=== PATIENT | male | born 1945 | race Caucasian/White ===

== ENCOUNTER 2018-08-30 14:03 | Emergency (ER) | payer MEDICARE, OTHER ==
[~2018-08-30] VITALS: Ht 180.3 cm; Wt 72.8 kg
[2018-08-30 15:07] LABS: BASOPHILS % (AUTO) 0.1 % (0-1); EOSINOPHILS # (AUTO) 0.2 X10'3 (0-0.9); EOSINOPHILS % (AUTO) 1.8 % (0-6); HEMATOCRIT 38.5 % (42.0-52.0); HEMOGLOBIN 13.1 g/dl (14.0-17.9); LYMPHOCYTES # (AUTO) 0.6 X10'3 (1.1-4.8); LYMPHOCYTES % (AUTO) 5.4 % (21-51); MEAN CORPUSCULAR HEMOGLOBIN 30.5 PG (27.0-31.0); MEAN CORPUSCULAR HGB CONC 34.1 g/dL (33.0-36.5); MEAN CORPUSCULAR VOLUME 89.4 FL (78-98); MEAN PLATELET VOLUME 8.4 FL (7.4-10.4); MONOCYTES # (AUTO) 0.4 X10'3 (0-0.9); MONOCYTES % (AUTO) 3.4 % (2-12); NEUTROPHILS # (AUTO) 9.9 X10'3 (1.8-7.7); NEUTROPHILS % (AUTO) 89.3 % (42-75); PLATELET COUNT 260 X10'3 (140-440); RED BLOOD COUNT 4.31 X10'6 (4.70-6.10); RED CELL DISTRIBUTION WIDTH 12.6 % (11.5-14.5); WHITE BLOOD COUNT 11.1 X10'3 (4.5-11.0)
[2018-08-30 15:21] LABS: ALANINE AMINOTRANSFERASE 21 U/L (12-78); ALBUMIN 3.6 G/DL (3.4-5.0); ALBUMIN/GLOBULIN RATIO 0.9 (1.1-1.5); ALKALINE PHOSPHATASE 169 IU/L (46-116); ANION GAP 13 (8-16); ASPARTATE AMINO TRANSFERASE 18 U/L (10-37); BILIRUBIN,TOTAL 0.3 MG/DL (0.1-1.0); BLOOD UREA NITROGEN 29 MG/DL (7-18); CALCIUM 9.5 MG/DL (8.5-10.1); CHLORIDE 100 MMOL/L (99-107); CREATININE 1.81 MG/DL (0.60-1.10); GLUCOSE 397 MG/DL (70-104); POTASSIUM 4.6 MMOL/L (3.5-5.1); SODIUM 138 MMOL/L (135-145); TOTAL CARBON DIOXIDE 24.7 MMOL/L (24-32); TOTAL PROTEIN 7.5 G/DL (6.4-8.2); eGFR 37 ML/MIN
[2018-08-30 15:22] LABS: PARTIAL THROMBOPLASTIN TIME 22 SECONDS (22-32); PROTHROMBIN TIME 10.2 SECONDS (9.0-12.0)
[2018-08-30 16:44] VITALS: BP 145/94
[2018-08-30 17:20] LABS: CLARITY,URINE CLOUDY (Clear); COLOR,URINE YELLOW (Yellow); GLUCOSE, URINE >=1000 mg/dl (Neg); KETONES,URINE TRACE mg/dl (Neg); LEUKOCYTE ESTERASE ,URINE NEGATIVE (Neg); NITRITES, URINE NEGATIVE (Neg); OCCULT BLOOD,URINE NEGATIVE (Neg); PH,URINE 5.5 (4.8-8.0); PROTEIN,URINE NEGATIVE (Neg); UROBILINOGEN,URINE 0.2 E.U/dL (0.2-1.0)
[2018-08-30 17:25] LABS: UA COLLECTION TYPE NON-SPECIFIED
[2018-08-30 17:26] LABS: HYALINE CASTS 0-3 /LPF (NEGATIVE); MUCUS STRANDS FEW /LPF (Neg); SQUAMOUS EPITHELIAL CELL,UR FEW /LPF (FEW); WBC CLUMPS,URINE MANY /HPF (NEGATIVE)
[2018-08-30 17:27] LABS: BACTERIA,URINE FEW /HPF (Neg)
[2018-08-30 17:28] LABS: WBC,URINE 30-50 /HPF (0-4)
--- NOTE | 2018-08-30 17:47 | NUR ---
LEFT FOR MRI
--- NOTE | 2018-08-30 18:23 | NUR ---
report to ATIF atkins
[2018-08-30] MEDS ORDERED: CefTRIAXone/D5W-Rocephin 1gm 50 ML IV ONE (18:25)
[2018-08-30] MEDS ORDERED: CIPR-230 PO (19:07)
== END 2018-08-30 19:32 | disposition home or self-care (01) ==
LOC: ER 14:04
DX: N39.0 Urinary tract infection, site not specified (principal); N17.9 Acute kidney failure, unspecified; R42 Dizziness and giddiness; E11.9 Type 2 diabetes mellitus without complications; Z98.890 Other specified postprocedural states; Z88.0 Allergy status to penicillin
CPT/HCPCS: 36415; 70450; 70551; 71045; 80053; 81001; 83605; 84484; 85025; 85610; 85730; 87040; 87077; 87088; 93005; 96365; 99284; J0696

== ENCOUNTER 2021-07-29 09:16 | Emergency (ER) | payer BC, MEDICAID ==
[~2021-07-29] VITALS: Ht 177.8 cm; Wt 77.3 kg
[2021-07-29 10:07] LABS: BASOPHILS % (AUTO) 0.3 % (0-1); EOSINOPHILS % (AUTO) 0.1 % (0-6); HEMATOCRIT 33.1 % (42.0-52.0); HEMOGLOBIN 11.2 g/dl (14.0-17.9); LYMPHOCYTES # (AUTO) 0.5 X10'3 (1.1-4.8); MEAN CORPUSCULAR HEMOGLOBIN 30.1 PG (27.0-31.0); MEAN CORPUSCULAR VOLUME 88.8 FL (78-98); MEAN PLATELET VOLUME 7.9 FL (7.4-10.4); MONOCYTES # (AUTO) 0.6 X10'3 (0-0.9); MONOCYTES % (AUTO) 8.4 % (2-12); NEUTROPHILS % (AUTO) 84.2 % (42-75); PLATELET COUNT 222 X10'3 (140-440); RED BLOOD COUNT 3.73 X10'6 (4.70-6.10); RED CELL DISTRIBUTION WIDTH 13.1 % (11.5-14.5); WHITE BLOOD COUNT 7.2 X10'3 (4.5-11.0)
[2021-07-29 10:25] LABS: ALANINE AMINOTRANSFERASE 12 U/L (12-78); ALBUMIN 2.8 G/DL (3.4-5.0); ALBUMIN/GLOBULIN RATIO 0.7 (1.1-1.5); ALKALINE PHOSPHATASE 106 IU/L (46-116); ANION GAP 9 (8-16); ASPARTATE AMINO TRANSFERASE 23 U/L (10-37); BILIRUBIN,TOTAL 0.3 MG/DL (0.1-1.0); BLOOD UREA NITROGEN 26 MG/DL (7-18); BUN/CREATININE RATIO 18.8 (5.4-32.0); CALCIUM 8.3 MG/DL (8.5-10.1); CHLORIDE 97 MMOL/L (99-107); CREATININE 1.38 MG/DL (0.60-1.10); GLUCOSE 281 MG/DL (70-104); POTASSIUM 4.3 MMOL/L (3.5-5.1); SODIUM 131 MMOL/L (135-145); TOTAL CARBON DIOXIDE 24.8 MMOL/L (24-32); TOTAL PROTEIN 7.1 G/DL (6.4-8.2); eGFR 50 ML/MIN
--- NOTE | 2021-07-29 11:15 | NUR ---
PT NOTIFIED HE IS POSITIVE COVID. AND DAUGHTER PRESENT, WILL TEST.
[2021-07-29] MEDS ORDERED: BAMLANIVIMAB&ETESEVIMAB 2100mg 2,100 MG in normal saline 100ml IV soln 100 ML IV ONE (11:25)
--- NOTE | 2021-07-29 11:48 | NUR ---
called pharmacy, they said 15minutes, med will be ready.
--- NOTE | 2021-07-29 12:05 | NUR ---
med not ready from pharmacy, they will run down when ready.
[2021-07-29] MEDS ORDERED: GUAI400T92 PO (14:27)
[2021-07-29] MEDS ORDERED: BENZ-38 PO (14:27)
--- NOTE | 2021-07-29 14:30 | NUR ---
Pt given and understands d/c instructions. Ambulatory with a steady gait.
[2021-07-29 14:37] VITALS: BP 147/74
== END 2021-07-29 14:30 | disposition home or self-care (01) ==
LOC: ER 09:17
DX: U07.1 COVID-19 (principal); R05.9 Cough, unspecified; E86.0 Dehydration; R10.84 Generalized abdominal pain; E11.9 Type 2 diabetes mellitus without complications; Z98.890 Other specified postprocedural states; Z88.0 Allergy status to penicillin; Z79.899 Other long term (current) drug therapy
CPT/HCPCS: 36415; 71045; 80053; 85025; 87635; 99284; C9803; J3490; M0245; Q0245

== ENCOUNTER 2021-08-02 12:52 | Emergency (ER) | payer BC, MEDICAID ==
[~2021-08-02] VITALS: Ht 177.8 cm; Wt 77.3 kg
[~2021-08-02 12:52] MED LIST: BENZ-38 PO; GUAI400T92 PO
[2021-08-02] MEDS ORDERED: ACET-1059 PO (13:06)
[2021-08-02] MEDS ORDERED: dexamethasone sod phosphate 10mg/ml inj PO STA (13:07)
[2021-08-02 13:11] VITALS: BP 98/78
== END 2021-08-02 13:54 | disposition home or self-care (01) ==
LOC: ER 12:53
DX: U07.1 COVID-19 (principal); J40 Bronchitis, not specified as acute or chronic; E11.9 Type 2 diabetes mellitus without complications; Z88.0 Allergy status to penicillin; Z79.899 Other long term (current) drug therapy
CPT/HCPCS: 99283; J1100

== ENCOUNTER 2021-08-04 18:16 | Inpatient (IN) | payer BC, MEDICAID ==
[~2021-08-04] VITALS: Ht 177.8 cm; Wt 79.5 kg
[~2021-08-04 18:16] MED LIST changes: +ACET-1059 PO
[2021-08-04] MEDS ORDERED: normal saline 1000ML IV soln IVB ONE (18:30)
[2021-08-04 19:11] LABS: BASOPHILS % (AUTO) 0.3 % (0-1); EOSINOPHILS % (AUTO) 0 % (0-6); HEMATOCRIT 33.7 % (42.0-52.0); HEMOGLOBIN 11.4 g/dl (14.0-17.9); LYMPHOCYTES % (AUTO) 15.4 % (21-51); MEAN CORPUSCULAR HEMOGLOBIN 29.8 PG (27.0-31.0); MEAN CORPUSCULAR HGB CONC 33.9 g/dL (33.0-36.5); MEAN CORPUSCULAR VOLUME 88.1 FL (78-98); MONOCYTES # (AUTO) 0.7 X10'3 (0-0.9); MONOCYTES % (AUTO) 10.8 % (2-12); NEUTROPHILS % (AUTO) 73.5 % (42-75); PLATELET COUNT 203 X10'3 (140-440); RED BLOOD COUNT 3.82 X10'6 (4.70-6.10); RED CELL DISTRIBUTION WIDTH 12.9 % (11.5-14.5); WHITE BLOOD COUNT 6.8 X10'3 (4.5-11.0)
[2021-08-04 19:28] LABS: ALANINE AMINOTRANSFERASE 14 U/L (12-78); ALBUMIN 2.4 G/DL (3.4-5.0); ALBUMIN/GLOBULIN RATIO 0.6 (1.1-1.5); ALKALINE PHOSPHATASE 95 IU/L (46-116); ANION GAP 7 (8-16); ASPARTATE AMINO TRANSFERASE 22 U/L (10-37); BILIRUBIN,TOTAL 0.3 MG/DL (0.1-1.0); BLOOD UREA NITROGEN 26 MG/DL (7-18); CALCIUM 7.9 MG/DL (8.5-10.1); CHLORIDE 101 MMOL/L (99-107); ETHANOL < 0.010 GM/DL (0.0-0.010); GLUCOSE 139 MG/DL (70-104); POTASSIUM 4.5 MMOL/L (3.5-5.1); SODIUM 134 MMOL/L (135-145); TOTAL CARBON DIOXIDE 25.9 MMOL/L (24-32); TOTAL PROTEIN 6.3 G/DL (6.4-8.2); eGFR 54 ML/MIN
[2021-08-04 20:48] LABS: CLARITY,URINE CLEAR (Clear); COLOR,URINE YELLOW (Yellow); GLUCOSE, URINE 250 mg/dl (Neg); KETONES,URINE TRACE mg/dl (Neg); LEUKOCYTE ESTERASE ,URINE NEGATIVE (Neg); NITRITES, URINE NEGATIVE (Neg); OCCULT BLOOD,URINE SMALL (Neg); PROTEIN,URINE TRACE mg/dl (Neg); UROBILINOGEN,URINE 0.2 E.U/dL (0.2-1.0)
[2021-08-04 20:55] LABS: UA COLLECTION TYPE STRAIGHT CATH
[2021-08-04] MEDS ORDERED: temazepam 15mg capsule PO PRN (21:00)
[2021-08-04 21:02] LABS: URINE AMPHETAMINE SCREEN NEGATIVE (Neg); URINE BARBITUATE SCREEN NEGATIVE (Neg); URINE BENZODIAZEPINES SCREEN NEGATIVE (Neg); URINE CANNABINOID SCREEN NEGATIVE (Neg); URINE COCAINE SCREEN NEGATIVE (Neg); URINE METHADONE SCREEN NEGATIVE (Neg); URINE OPIATE SCREEN POSITIVE (Neg); URINE PHENCYCLIDINE SCREEN NEGATIVE (Neg)
[2021-08-04 21:03] LABS: BACTERIA,URINE FEW /HPF (Neg); RBC,URINE 0-2 /HPF (0-2); WBC,URINE 0-4 /HPF (0-4)
[2021-08-04 21:04] LABS: MUCUS STRANDS NONE SEEN /LPF (Neg); SQUAMOUS EPITHELIAL CELL,UR FEW /LPF (FEW)
--- NOTE | 2021-08-04 21:13 | NUR ---
PT WAS FOUND STANDING UP AT [facility] OF [facility]. PT DID NOT FALL
--- NOTE | 2021-08-04 21:31 | NUR ---
mo lazo at bedside as anthony
[2021-08-04] MEDS ORDERED: acetaminophen 650mg rectal suppository RC PRN (21:45)
[2021-08-04] MEDS ORDERED: HYDROcodone/acetaminophen 10/325mg tab PO PRN (21:45)
[2021-08-04] MEDS ORDERED: HYDROcodone/acetaminophen 5mg/325mg tablet PO PRN (21:45)
[2021-08-04] MEDS ORDERED: diphenhydrAMINE 25mg capsule PO PRN (21:45)
[2021-08-04] MEDS ORDERED: bisacodyl 10mg suppository rectal RC PRN (21:45)
[2021-08-04] MEDS ORDERED: ondansetron/PF 4mg/2ml inj IV PRN (21:45)
[2021-08-04] MEDS ORDERED: acetaminophen 325mg tablet PO PRN ×2 (21:45)
[2021-08-04] MEDS ORDERED: mag hydrox/Alum hydrox/simeth 30ml oral suspension PO PRN (21:45)
[2021-08-04] MEDS ORDERED: diphenhydrAMINE 50 mg/ml inj IV PRN (21:45)
[2021-08-04] MEDS: normal saline 1000ml 1,000 ML IV SCH (21:45)
[2021-08-04] MEDS ORDERED: ondansetron 4mg rapidly disintigrating tab PO PRN (21:45)
[2021-08-04] MEDS ORDERED: magnesium hydroxide 30ml (MOM) UD suspension PO PRN (21:45)
[2021-08-04] MEDS ORDERED: HYDROmorphone inj. 0.5 MG/0.5 ML DISP.SYRIN IV PRN (21:45)
[2021-08-04] MEDS ORDERED: morphine 2 MG/ML inj. syringe IV PRN ×2 (21:45)
[2021-08-04] MEDS ORDERED: dextrose 50%-water 50ml dispensing syringe IV PRN ×2 (21:55)
[2021-08-04] MEDS ORDERED: glucagon, human recombinant 1mg kit SUBCUT PRN (21:55)
[2021-08-04] MEDS ORDERED: MESSAGE TO PHARMACY PO ONE (21:55)
[2021-08-04] MEDS ORDERED: ALBUTEROL INHALER 1 PUFF/90 MCG INHALER IH PRN (21:55)
[2021-08-04] MEDS ORDERED: dextrose ORAL solution 15 GM/59 ML bottle PO PRN ×2 (21:55)
[2021-08-04 22:07] LABS: APTT 27 SECONDS (22-32); D-DIMER 1.08 MG/L FEU (0-0.50)
[2021-08-04 22:11] LABS: HEMOGLOBIN A1C 10.3 % (4.5-6.2)
[2021-08-04 22:19] LABS: CREATINE KINASE 209 U/L (39-308); LIPASE < 50 U/L (73-393); PHOSPHORUS 2.6 MG/DL (2.3-4.5)
--- NOTE | 2021-08-04 23:49 | NUR ---
pts was contacted in regards to overhealth. reports no home meds taken accept insulin. unkown dose/last taken. is notified that patient is being admitted
--- NOTE | 2021-08-05 06:41 | NUR ---
TRIED TO GIVE TO TO THE RN BUT SHE IS BUSY AT THIS TIME.
--- NOTE | 2021-08-05 07:10 | NUR ---
TRIED TO GIVE REPORT AGAIN ,NURSE IS BUSY DOING MED PASS AT THIS TIME AND SHE WILL CALL US IN 2-3 MINS.
[2021-08-05 07:21] LABS: BASOPHILS % (AUTO) 0.1 % (0-1); EOSINOPHILS % (AUTO) 0.3 % (0-6); HEMATOCRIT 34.1 % (42.0-52.0); HEMOGLOBIN 11.7 g/dl (14.0-17.9); LYMPHOCYTES # (AUTO) 1.2 X10'3 (1.1-4.8); LYMPHOCYTES % (AUTO) 16.8 % (21-51); MEAN CORPUSCULAR HGB CONC 34.4 g/dL (33.0-36.5); MEAN CORPUSCULAR VOLUME 87.1 FL (78-98); MEAN PLATELET VOLUME 7.5 FL (7.4-10.4); MONOCYTES # (AUTO) 0.8 X10'3 (0-0.9); MONOCYTES % (AUTO) 10.5 % (2-12); NEUTROPHILS # (AUTO) 5.2 X10'3 (1.8-7.7); NEUTROPHILS % (AUTO) 72.3 % (42-75); PLATELET COUNT 197 X10'3 (140-440); RED BLOOD COUNT 3.91 X10'6 (4.70-6.10); WHITE BLOOD COUNT 7.2 X10'3 (4.5-11.0)
[2021-08-05 07:57] LABS: ALANINE AMINOTRANSFERASE 15 U/L (12-78); ALBUMIN 2.2 G/DL (3.4-5.0); ALBUMIN/GLOBULIN RATIO 0.5 (1.1-1.5); ALKALINE PHOSPHATASE 88 IU/L (46-116); ANION GAP 8 (8-16); ASPARTATE AMINO TRANSFERASE 25 U/L (10-37); BILIRUBIN,TOTAL 0.4 MG/DL (0.1-1.0); BLOOD UREA NITROGEN 19 MG/DL (7-18); BUN/CREATININE RATIO 17.9 (5.4-32.0); CALCIUM 7.8 MG/DL (8.5-10.1); CHLORIDE 102 MMOL/L (99-107); CHOL/HDL RATIO 3.4 (0.00-4.99); CHOLESTEROL 133 MG/DL (0-200); CREATININE 1.06 MG/DL (0.60-1.10); GLUCOSE 181 MG/DL (70-104); HDL CHOLESTEROL 39 MG/DL (35-60); LDL CHOLESTEROL 73 MG/DL (50-100); POTASSIUM 4.3 MMOL/L (3.5-5.1); SODIUM 136 MMOL/L (135-145); TOTAL CARBON DIOXIDE 26.4 MMOL/L (24-32); TOTAL PROTEIN 6.3 G/DL (6.4-8.2); TRIGLYCERIDES 123 MG/DL (20-135); eGFR 68 ML/MIN
[2021-08-05] MEDS ORDERED: dexamethasone 4mg/ml inj IV SCH ×2 (08:00→20:00)
[2021-08-05] MEDS: normal saline 1000ml 1,000 ML IV SCH (08:42)
[2021-08-05] MEDS: docusate sod 100mg capsule PO SCH ×2 (08:51→19:55)
[2021-08-05] MEDS: enoxaparin 40mg/0.4ml syringe SUBCUT SCH ×2 (08:51→19:49)
[2021-08-05] MEDS: levoFLOXACIN-Levaquin 750MG/D5 150 ML IV SCH (08:52)
[2021-08-05 09:10] VITALS: BP 171/73
[2021-08-05] MEDS: insulin Lispro (HumaLOG) vial - multi-dose SQ SCH ×4 (09:59→21:49)
[2021-08-05 10:00] VITALS: BP 137/57
--- NOTE | 2021-08-05 10:40 | NUR ---
Message: [phone]. Patient's blood cultures are positive with gram + cocci, + chains. Cat SRIVASTAVA [id number]
[2021-08-05] MEDS ORDERED: iohexol 350MG/ML 100ml bottle IV ONE (12:35)
--- NOTE | 2021-08-05 13:58 | NUR ---
DM Consult: Pt hx T2DM though insulin dependent per RN today and ER note A1C 10.3% admit DX ALOC, COVID-19, bilateral PNA, and ketonuria r/t dehydration per EMR. RD d/w RN regarding ALOC now pt AOx4 per EMR; RN reports pt appropriate w/ mild occasional confusion easily resolving. RD contacted pt via TC for verbal DM ed. Pt reports has controlled his DM well all on his own and manages himself without the help of PCP. Pt reports doesn't like doctors and has not seen one in "40 years." Pt also reports takes DM meds at home and checks Glu routinely but does not know name of DM meds or typical Glu ranges at home. Per pt, has better knowledge of DM meds and Glu ranges since she has "better memory." Pt did still report his Glu is in "optimal ranges for him" at home. Pt did not know what A1C was. RD notified pt of A1C and educated pt on optimal Glu ranges. Pt was agreeable to have written DM ed mailed to home address and RD encouraged pt or his to contact dietitian's office if further questions/concerns. Written DM ed w/ RD contact information mailed to pt home address in EMR. RD relayed pt conversation to RN and CM; per RN pt reports does not have PCP since he believes he knows more about DM management. RN was able to reach who reports pt takes Novolin AM/HS and one other insulin though unsure of name. Will remain available for further nutrition questions/concerns this admit. Addendum: 08/05/21 at [address] Amended: Links added.
[2021-08-05 14:00] VITALS: BP 114/57
[2021-08-05 18:00] VITALS: BP 130/54
--- NOTE | 2021-08-05 18:22 | NUR ---
Problems reprioritized. Patient report given, questions answered & plan of care reviewed with Christine SRIVASTAVA.
[2021-08-05] MEDS: dexamethasone 6 MG/D5W 100ml IV.soln (total 101.5ml) IV SCH ×2 (19:49)
[2021-08-05] MEDS: lactobacillus rhamnosus 10,000 MMU CELLS/CAPSULE PO SCH (19:49)
[2021-08-05] MEDS: insulin glargine (Lantus) pen - multi-dose SQ SCH (21:47)
[2021-08-05 22:00] VITALS: BP 160/69
[2021-08-06] MEDS: normal saline 1000ml 1,000 ML IV SCH (00:02)
[2021-08-06 02:00] VITALS: BP 119/72
[2021-08-06 06:00] VITALS: BP 118/67
--- NOTE | 2021-08-06 06:34 | NUR ---
Problems reprioritized. Patient report given, questions answered & plan of care reviewed with Cat SRIVASTAVA.
[2021-08-06] MEDS: docusate sod 100mg capsule PO SCH ×2 (08:23→20:00)
[2021-08-06] MEDS: lactobacillus rhamnosus 10,000 MMU CELLS/CAPSULE PO SCH ×2 (08:23→20:05)
[2021-08-06] MEDS: enoxaparin 40mg/0.4ml syringe SUBCUT SCH ×2 (08:24→20:06)
[2021-08-06] MEDS: dexamethasone 6 MG/D5W 100ml IV.soln (total 101.5ml) IV SCH ×4 (08:24→20:06)
[2021-08-06] MEDS: levoFLOXACIN-Levaquin 750MG/D5 150 ML IV SCH (08:24)
[2021-08-06 08:26] LABS: BASOPHILS % (AUTO) 0 % (0-1); EOSINOPHILS % (AUTO) 0 % (0-6); HEMATOCRIT 38.5 % (42.0-52.0); HEMOGLOBIN 12.9 g/dl (14.0-17.9); LYMPHOCYTES # (AUTO) 0.6 X10'3 (1.1-4.8); LYMPHOCYTES % (AUTO) 10.4 % (21-51); MEAN CORPUSCULAR HEMOGLOBIN 29.7 PG (27.0-31.0); MEAN CORPUSCULAR HGB CONC 33.6 g/dL (33.0-36.5); MEAN CORPUSCULAR VOLUME 88.5 FL (78-98); MEAN PLATELET VOLUME 8.3 FL (7.4-10.4); MONOCYTES # (AUTO) 0.3 X10'3 (0-0.9); NEUTROPHILS # (AUTO) 4.5 X10'3 (1.8-7.7); NEUTROPHILS % (AUTO) 84.6 % (42-75); PLATELET COUNT 228 X10'3 (140-440); RED BLOOD COUNT 4.35 X10'6 (4.70-6.10); RED CELL DISTRIBUTION WIDTH 13.2 % (11.5-14.5); WHITE BLOOD COUNT 5.3 X10'3 (4.5-11.0)
[2021-08-06] MEDS: insulin Lispro (HumaLOG) vial - multi-dose SQ SCH ×3 (09:03→18:40)
[2021-08-06 09:39] LABS: ALBUMIN 2.5 G/DL (3.4-5.0); ALBUMIN/GLOBULIN RATIO 0.5 (1.1-1.5); ALKALINE PHOSPHATASE 106 IU/L (46-116); ANION GAP 13 (8-16); ASPARTATE AMINO TRANSFERASE 23 U/L (10-37); BILIRUBIN,TOTAL 0.5 MG/DL (0.1-1.0); BLOOD UREA NITROGEN 30 MG/DL (7-18); BUN/CREATININE RATIO 22.9 (5.4-32.0); C-REACTIVE PROTEIN 4.94 MG/DL (0.0-0.5); CALCIUM 8.6 MG/DL (8.5-10.1); CHLORIDE 99 MMOL/L (99-107); CREATININE 1.31 MG/DL (0.60-1.10); GLUCOSE 422 MG/DL (70-104); LACTATE DEHYDROGENASE 143 U/L (85-227); MAGNESIUM 2.1 MG/DL (1.5-2.4); PHOSPHORUS 4.3 MG/DL (2.3-4.5); POTASSIUM 4.8 MMOL/L (3.5-5.1); SODIUM 135 MMOL/L (135-145); TOTAL CARBON DIOXIDE 22.6 MMOL/L (24-32); TOTAL PROTEIN 7.2 G/DL (6.4-8.2); eGFR 53 ML/MIN
[2021-08-06 10:00] VITALS: BP 104/35
[2021-08-06] MEDS: cefepime 1GM in D5W 50mL 50 ML IV SCH ×2 (10:20→16:00)
[2021-08-06 10:42] LABS: ALANINE AMINOTRANSFERASE 20 U/L (12-78)
[2021-08-06 11:09] LABS: D-DIMER 1.14 MG/L FEU (0-0.50)
[2021-08-06 14:00] VITALS: BP 107/46
[2021-08-06 18:00] VITALS: BP 117/48
--- NOTE | 2021-08-06 18:23 | NUR ---
Patient in room ORTHO 4008. I have received report from Cat SRIVASTAVA and had the opportunity to ask questions and assume patient care.
--- NOTE | 2021-08-06 18:29 | NUR ---
Problems reprioritized. Patient report given, questions answered & plan of care reviewed with Christine SRIVASTAVA.
[2021-08-06] MEDS: insulin glargine (Lantus) pen - multi-dose SQ SCH (21:18)
[2021-08-06 22:00] VITALS: BP 107/54
[2021-08-07] MEDS: normal saline 1000ml 1,000 ML IV SCH ×2 (00:44→20:22)
[2021-08-07] MEDS: cefepime 1GM in D5W 50mL 50 ML IV SCH ×2 (00:45→08:31)
[2021-08-07 06:00] VITALS: BP 103/46
--- NOTE | 2021-08-07 06:34 | NUR ---
Problems reprioritized. Patient report given, questions answered & plan of care reviewed with Amrita SRIVASTAVA.
[2021-08-07] MEDS: insulin Lispro (HumaLOG) vial - multi-dose SQ SCH ×3 (08:27→18:55)
[2021-08-07] MEDS: enoxaparin 40mg/0.4ml syringe SUBCUT SCH ×2 (08:31→19:43)
[2021-08-07] MEDS: docusate sod 100mg capsule PO SCH ×2 (08:31→19:43)
[2021-08-07] MEDS: lactobacillus rhamnosus 10,000 MMU CELLS/CAPSULE PO SCH ×2 (08:31→19:43)
[2021-08-07] MEDS: levoFLOXACIN-Levaquin 750MG/D5 150 ML IV SCH (08:32)
[2021-08-07 08:39] LABS: BASOPHILS % (AUTO) 0.1 % (0-1); EOSINOPHILS % (AUTO) 0.1 % (0-6); HEMATOCRIT 35.6 % (42.0-52.0); HEMOGLOBIN 11.9 g/dl (14.0-17.9); LYMPHOCYTES # (AUTO) 0.6 X10'3 (1.1-4.8); MEAN CORPUSCULAR HEMOGLOBIN 29.4 PG (27.0-31.0); MEAN CORPUSCULAR HGB CONC 33.4 g/dL (33.0-36.5); MEAN CORPUSCULAR VOLUME 88.1 FL (78-98); MEAN PLATELET VOLUME 8.2 FL (7.4-10.4); MONOCYTES # (AUTO) 0.5 X10'3 (0-0.9); MONOCYTES % (AUTO) 4.7 % (2-12); NEUTROPHILS # (AUTO) 9.7 X10'3 (1.8-7.7); NEUTROPHILS % (AUTO) 89.1 % (42-75); PLATELET COUNT 245 X10'3 (140-440); RED BLOOD COUNT 4.04 X10'6 (4.70-6.10); WHITE BLOOD COUNT 10.9 X10'3 (4.5-11.0)
[2021-08-07 08:42] LABS: ALANINE AMINOTRANSFERASE 17 U/L (12-78); ALBUMIN 2.2 G/DL (3.4-5.0); ALBUMIN/GLOBULIN RATIO 0.5 (1.1-1.5); ALKALINE PHOSPHATASE 88 IU/L (46-116); ANION GAP 8 (8-16); ASPARTATE AMINO TRANSFERASE 23 U/L (10-37); BILIRUBIN,TOTAL 0.3 MG/DL (0.1-1.0); BLOOD UREA NITROGEN 40 MG/DL (7-18); BUN/CREATININE RATIO 31.5 (5.4-32.0); C-REACTIVE PROTEIN 2.42 MG/DL (0.0-0.5); CALCIUM 8.1 MG/DL (8.5-10.1); CHLORIDE 104 MMOL/L (99-107); CREATININE 1.27 MG/DL (0.60-1.10); GLUCOSE 263 MG/DL (70-104); LACTATE DEHYDROGENASE 154 U/L (85-227); MAGNESIUM 2.1 MG/DL (1.5-2.4); PHOSPHORUS 4.1 MG/DL (2.3-4.5); POTASSIUM 4.9 MMOL/L (3.5-5.1); SODIUM 135 MMOL/L (135-145); TOTAL CARBON DIOXIDE 23.5 MMOL/L (24-32); TOTAL PROTEIN 6.3 G/DL (6.4-8.2); eGFR 55 ML/MIN
[2021-08-07] MEDS: dexamethasone 6 MG/D5W 100ml IV.soln (total 101.5ml) IV SCH ×2 (08:44)
[2021-08-07 09:00] LABS: D-DIMER 1.04 MG/L FEU (0-0.50)
[2021-08-07 10:00] VITALS: BP 125/37
--- NOTE | 2021-08-07 12:00 | NUR ---
Assumed care of pt. Pt awake and alert. Pt oriented to self only. Reoriented pt to place and surroundings. Call light within reach. Pt denied any pain or SOB at this time.
[2021-08-07] MEDS ORDERED: VANCOmycin 2,000MG in NS 500ml IV soln IV ONE (13:30)
[2021-08-07 14:00] VITALS: BP 100/44
[2021-08-07 18:00] VITALS: BP 92/52
--- NOTE | 2021-08-07 18:45 | NUR ---
Patient in room ORTHO 4008. I have received report from Donte SRIVASTAVA and had the opportunity to ask questions and assume patient care.
[2021-08-07] MEDS: insulin glargine (Lantus) pen - multi-dose SQ SCH (21:26)
[2021-08-07 22:00] VITALS: BP_SYST 144; BP_SYST 92; BP_DIAS 52; BP_DIAS 57
[2021-08-08 06:00] VITALS: BP 140/66
--- NOTE | 2021-08-08 06:29 | NUR ---
Problems reprioritized. Patient report given, questions answered & plan of care reviewed with Liseth SRIVASTAVA.
[2021-08-08 07:49] LABS: BASOPHILS % (AUTO) 0.1 % (0-1); EOSINOPHILS % (AUTO) 0.1 % (0-6); HEMATOCRIT 32.4 % (42.0-52.0); HEMOGLOBIN 11.2 g/dl (14.0-17.9); LYMPHOCYTES # (AUTO) 1.5 X10'3 (1.1-4.8); MEAN CORPUSCULAR HEMOGLOBIN 29.9 PG (27.0-31.0); MEAN CORPUSCULAR HGB CONC 34.5 g/dL (33.0-36.5); MEAN CORPUSCULAR VOLUME 86.6 FL (78-98); MEAN PLATELET VOLUME 7.8 FL (7.4-10.4); MONOCYTES # (AUTO) 0.8 X10'3 (0-0.9); MONOCYTES % (AUTO) 7.6 % (2-12); NEUTROPHILS # (AUTO) 7.8 X10'3 (1.8-7.7); NEUTROPHILS % (AUTO) 77.2 % (42-75); PLATELET COUNT 239 X10'3 (140-440); RED BLOOD COUNT 3.75 X10'6 (4.70-6.10); RED CELL DISTRIBUTION WIDTH 13.1 % (11.5-14.5); WHITE BLOOD COUNT 10.1 X10'3 (4.5-11.0)
[2021-08-08] MEDS: enoxaparin 40mg/0.4ml syringe SUBCUT SCH ×2 (07:58→19:57)
[2021-08-08] MEDS: docusate sod 100mg capsule PO SCH ×2 (07:58→19:59)
[2021-08-08] MEDS: lactobacillus rhamnosus 10,000 MMU CELLS/CAPSULE PO SCH ×2 (07:58→19:57)
[2021-08-08] MEDS ORDERED: dexamethasone inj 6 MG in dextrose 5%-water 100 ML IV SCH (08:00)
[2021-08-08 08:12] LABS: ALANINE AMINOTRANSFERASE 17 U/L (12-78); ALBUMIN/GLOBULIN RATIO 0.5 (1.1-1.5); ALKALINE PHOSPHATASE 76 IU/L (46-116); ANION GAP 7 (8-16); ASPARTATE AMINO TRANSFERASE 22 U/L (10-37); BILIRUBIN,TOTAL 0.4 MG/DL (0.1-1.0); BLOOD UREA NITROGEN 36 MG/DL (7-18); BUN/CREATININE RATIO 30.5 (5.4-32.0); C-REACTIVE PROTEIN 1.44 MG/DL (0.0-0.5); CALCIUM 7.8 MG/DL (8.5-10.1); CHLORIDE 106 MMOL/L (99-107); CREATININE 1.18 MG/DL (0.60-1.10); LACTATE DEHYDROGENASE 121 U/L (85-227); MAGNESIUM 2.1 MG/DL (1.5-2.4); PHOSPHORUS 2.8 MG/DL (2.3-4.5); POTASSIUM 4.1 MMOL/L (3.5-5.1); SODIUM 139 MMOL/L (135-145); TOTAL CARBON DIOXIDE 25.8 MMOL/L (24-32); TOTAL PROTEIN 5.9 G/DL (6.4-8.2); eGFR 60 ML/MIN
[2021-08-08 08:15] LABS: GLUCOSE 46 MG/DL (70-104)
[2021-08-08 10:00] VITALS: BP 99/51
--- NOTE | 2021-08-08 10:15 | NUR ---
no insulin given due to low blood sugar in AM [facility]
[2021-08-08 15:00] VITALS: BP 107/62
[2021-08-08] MEDS: NORMAL SALINE IV SCH (15:14)
[2021-08-08] MEDS: normal saline 1000ml 1,000 ML IV SCH (15:14)
[2021-08-08] MEDS: VANCOMYCIN IV SCH (15:14)
--- NOTE | 2021-08-08 15:15 | NUR ---
Initial: Pt admit for COVID PNA and ALOC. Currently on a CHO controlled diet with fluctuating PO intake averaging 45% since admit not meeting estimated nutrient needs. Recommend Ensure Enlive TID optimize PO intake, to be sent pending physician approval in EMR. LBM 08/07. Will continue to follow closely and make recommendations as appropriate. Recommendations: 1) Continue CHO controlled diet; liberalize to regular diet IF PO intake does not improve/BG levels controlled 2) Ensure Enlive TIDWM, pending physician approval in EMR 3) Routine bowel care 4) Scaled weight this admit; weekly scaled weights thereafter Addendum: 08/08/21 at [address] Amended: Links added.
[2021-08-08 18:00] VITALS: BP 140/67
[2021-08-08] MEDS ORDERED: lactose-reduced food (Ensure Enlive) - 237ml bottle PO SCH (18:00)
--- NOTE | 2021-08-08 18:20 | NUR ---
Report received from Anabela RN, assumed care of patient.
--- NOTE | 2021-08-08 18:24 | NUR ---
Problems reprioritized. Patient report given to Tila RN, questions answered & plan of care reviewed with Tila RN.
[2021-08-08] MEDS: insulin glargine (Lantus) pen - multi-dose SQ SCH (21:00)
--- NOTE | 2021-08-08 21:07 | NUR ---
Patient current blood sugar is 101 he is refusing lantus coverage at this time r/t the current sugar reading.
[2021-08-08 22:00] VITALS: BP 105/53
--- NOTE | 2021-08-09 06:20 | NUR ---
Patient in room ORTHO 4008. I have received report from ATIF Adorno and had the opportunity to ask questions and assume patient care.
[2021-08-09 06:30] VITALS: BP 146/63
[2021-08-09 07:59] LABS: BASOPHILS % (AUTO) 0.1 % (0-1); EOSINOPHILS # (AUTO) 0.1 X10'3 (0-0.9); EOSINOPHILS % (AUTO) 0.9 % (0-6); HEMATOCRIT 33.5 % (42.0-52.0); HEMOGLOBIN 11.4 g/dl (14.0-17.9); LYMPHOCYTES # (AUTO) 1.6 X10'3 (1.1-4.8); LYMPHOCYTES % (AUTO) 20.3 % (21-51); MEAN CORPUSCULAR HEMOGLOBIN 29.6 PG (27.0-31.0); MEAN CORPUSCULAR VOLUME 87.1 FL (78-98); MEAN PLATELET VOLUME 7.8 FL (7.4-10.4); MONOCYTES # (AUTO) 0.7 X10'3 (0-0.9); MONOCYTES % (AUTO) 9.1 % (2-12); NEUTROPHILS # (AUTO) 5.4 X10'3 (1.8-7.7); NEUTROPHILS % (AUTO) 69.6 % (42-75); PLATELET COUNT 246 X10'3 (140-440); RED BLOOD COUNT 3.85 X10'6 (4.70-6.10); RED CELL DISTRIBUTION WIDTH 13.3 % (11.5-14.5); WHITE BLOOD COUNT 7.7 X10'3 (4.5-11.0)
[2021-08-09 08:30] LABS: ALANINE AMINOTRANSFERASE 26 U/L (12-78); ALBUMIN 2.1 G/DL (3.4-5.0); ALBUMIN/GLOBULIN RATIO 0.5 (1.1-1.5); ALKALINE PHOSPHATASE 83 IU/L (46-116); ANION GAP 3 (8-16); ASPARTATE AMINO TRANSFERASE 44 U/L (10-37); BILIRUBIN,TOTAL 0.4 MG/DL (0.1-1.0); BLOOD UREA NITROGEN 25 MG/DL (7-18); BUN/CREATININE RATIO 24.5 (5.4-32.0); C-REACTIVE PROTEIN 1.07 MG/DL (0.0-0.5); CALCIUM 7.6 MG/DL (8.5-10.1); CHLORIDE 108 MMOL/L (99-107); CREATININE 1.02 MG/DL (0.60-1.10); GLUCOSE 110 MG/DL (70-104); LACTATE DEHYDROGENASE 142 U/L (85-227); MAGNESIUM 1.9 MG/DL (1.5-2.4); PHOSPHORUS 2.5 MG/DL (2.3-4.5); POTASSIUM 4.3 MMOL/L (3.5-5.1); SODIUM 140 MMOL/L (135-145); TOTAL CARBON DIOXIDE 29.2 MMOL/L (24-32); eGFR 71 ML/MIN
[2021-08-09] MEDS: docusate sod 100mg capsule PO SCH ×2 (10:10→20:18)
[2021-08-09] MEDS: lactobacillus rhamnosus 10,000 MMU CELLS/CAPSULE PO SCH ×2 (10:10→20:18)
[2021-08-09] MEDS: enoxaparin 40mg/0.4ml syringe SUBCUT SCH ×2 (10:11→20:18)
[2021-08-09] MEDS: insulin Lispro (HumaLOG) vial - multi-dose SQ SCH ×2 (10:15→13:38)
[2021-08-09] MEDS: normal saline 1000ml 1,000 ML IV SCH ×2 (10:18→13:31)
[2021-08-09 10:30] VITALS: BP 120/54
[2021-08-09] MEDS: NORMAL SALINE IV SCH (13:31)
[2021-08-09] MEDS: VANCOMYCIN IV SCH (13:31)
[2021-08-09 14:30] VITALS: BP 96/44
[2021-08-09 18:00] VITALS: BP_SYST 143; BP_SYST 146; BP_DIAS 59; BP_DIAS 63
--- NOTE | 2021-08-09 18:30 | NUR ---
Before & upon performing before dinner accucheck pt asymptomatic of BG=19 except sweating & pt stated, "It's blurry when I look down the hallway." Re-checked BG=19. Re-checked BG l2=635, 152 (Used a different glucometer & finger/hand) immediately after administering 50ml of dextrose 50% via IV. BG x2 [id number] 15 minutes after administering the above noted dextrose. Pt began eating dinner & above noted s/s or any other s/s noted or c/o by pt. notified.
--- NOTE | 2021-08-09 19:10 | NUR ---
Patient refused dinner insulin coverage r/t critically low blood sugar prior to dinner of 19. Will continue to monitor.
[2021-08-09] MEDS: insulin glargine (Lantus) pen - multi-dose SQ SCH (20:26)
--- NOTE | 2021-08-09 20:30 | NUR ---
Lantus administration was 15 units as patient dose was to be dropped for previous administration but patient had refused r/t low blood sugar on 08/08/21. AM blood sugar on 08/09/21 would have required not change in dose. Patient was in agreement at time of administration for dose of 15 units with a current blood sugar of 189.
[2021-08-09 22:00] VITALS: BP 133/65
[2021-08-10 06:00] VITALS: BP 121/57
--- NOTE | 2021-08-10 06:08 | NUR ---
Patient in room ORTHO 4008. I have received report from ATIF Adorno and had the opportunity to ask questions and assume patient care.
[2021-08-10] MEDS: lactobacillus rhamnosus 10,000 MMU CELLS/CAPSULE PO SCH (07:39)
[2021-08-10] MEDS: docusate sod 100mg capsule PO SCH (07:39)
[2021-08-10] MEDS: enoxaparin 40mg/0.4ml syringe SUBCUT SCH (07:40)
[2021-08-10 08:05] LABS: D-DIMER 0.65 MG/L FEU (0-0.50)
[2021-08-10 08:46] LABS: C-REACTIVE PROTEIN 0.83 MG/DL (0.0-0.5); PHOSPHORUS 2.4 MG/DL (2.3-4.5)
[2021-08-10] MEDS: insulin Lispro (HumaLOG) vial - multi-dose SQ SCH ×2 (09:27→13:23)
[2021-08-10 10:00] VITALS: BP_SYST 111; BP_SYST 167; BP_DIAS 44; BP_DIAS 49
[2021-08-10] MEDS ORDERED: VANCOMYCIN LEVEL IV ONE (13:30)
[2021-08-10] MEDS ORDERED: vancomycin/NS 1 GM ADD-VANTAGE 250 ML IV SCH (14:00)
[2021-08-10] MEDS ORDERED: ASPI-611 PO (14:03)
[2021-08-10] MEDS ORDERED: LACT1CAP26 PO (14:03)
[2021-08-10] MEDS ORDERED: ALBU8.5H17 INH (14:03)
[2021-08-10] MEDS ORDERED: AMA1T PO (14:06)
[2021-08-10] MEDS ORDERED: METF-1203 PO (14:06)
[2021-08-10] MEDS ORDERED: SITA100T15 PO (14:06)
--- NOTE | 2021-08-10 14:29 | NUR ---
Page Accepted Message: Hina [phone] Re: Fracisco Baker [id number] physical therapy worked with pt and he was positive for orthostatic hypotension, bp laying 100/40, sitting 73/32 and 64/29. Pt is asymptomatic. Thanks
--- NOTE | 2021-08-10 17:49 | NUR ---
d/c instructions given, questions answered. belongings gathered by aide, and sent with pt. iv d/c'd, cannula intact, no complications. d/c'd pt in stable condition to home in private vehicle accompanied by daughter. pt left floor at 1735
[2021-08-11] MEDS ORDERED: enoxaparin 40mg/0.4ml syringe SUBCUT SCH (08:00)
== END 2021-08-10 17:50 | disposition home or self-care (01) | DRG 177 ==
LOC: ER 18:16 → ED HOLD 21:51 → ORTHO 4S 08-05 07:03
PROVIDERS: ADMIT Family Medicine; ATTEND Family Medicine
PROC: B32T1ZZ Computerized Tomography (CT Scan) of Left Pulmonary Artery using Low Osmolar Contrast (ICD-10-PCS; principal; 2021-08-05)
PROC: B3201ZZ Computerized Tomography (CT Scan) of Thoracic Aorta using Low Osmolar Contrast (ICD-10-PCS; 2021-08-05)
PROC: B32S1ZZ Computerized Tomography (CT Scan) of Right Pulmonary Artery using Low Osmolar Contrast (ICD-10-PCS; 2021-08-05)
DX: U07.1 COVID-19 (principal); J12.82 Pneumonia due to coronavirus disease 2019; J96.01 Acute respiratory failure with hypoxia; E87.1 Hypo-osmolality and hyponatremia; N17.9 Acute kidney failure, unspecified; G93.40 Encephalopathy, unspecified; I95.1 Orthostatic hypotension; E11.22 Type 2 diabetes mellitus with diabetic chronic kidney disease; N18.9 Chronic kidney disease, unspecified; E86.0 Dehydration; I12.9 Hypertensive chronic kidney disease with stage 1 through stage 4 chronic kidney disease, or unspecified chronic kidney disease; B95.2 Enterococcus as the cause of diseases classified elsewhere; E11.40 Type 2 diabetes mellitus with diabetic neuropathy, unspecified; E11.65 Type 2 diabetes mellitus with hyperglycemia; R82.4 Acetonuria; Z88.0 Allergy status to penicillin; Z79.899 Other long term (current) drug therapy
CPT/HCPCS: 36415; 70450; 71045; 71275; 80053; 80061; 80202; 80305; 80320; 81001; 82550; 82948; 83036; 83605; 83615; 83690; 83735; 83880; 84100; 84145; 85025; 85379; 85610; 85730; 86140; 87040; 87077; 87081; 87186; 93005; 93306; 97116; 97161; 97530; 99285; G0378; J0692; J1100; J1650; J1815; J1956; J3370; J3490; J7030; J7040; J7050; J7060; Q9967